=== PATIENT | female | born 1990 | race Caucasian/White ===

== ENCOUNTER 2017-11-24 09:59 | Emergency (ER) | payer OTHER, MEDICAID ==
[~2017-11-24] VITALS: Ht 157.5 cm; Wt 79.4 kg
[2017-11-24] MEDS ORDERED: NORCO 5-325 TA1 EACH PO (11:19)
[2017-11-24] MEDS ORDERED: IBUPROFEN 800800 M1 PO (11:19)
[2017-11-24] MEDS ORDERED: FLEXERIL PO (11:19)
[2017-11-24 11:38] VITALS: BP 117/61
== END 2017-11-24 11:39 | disposition home or self-care (01) ==
LOC: M.ERS 09:59
DX: M54.5 Low back pain (principal); M54.6 Pain in thoracic spine; Z91.040 Latex allergy status; W10.9XXA Fall (on) (from) unspecified stairs and steps, initial encounter; Y93.89 Activity, other specified; Y92.89 Other specified places as the place of occurrence of the external cause; Y99.8 Other external cause status